=== PATIENT | female | born 1995 | race Two or more races ===

== ENCOUNTER 2017-03-17 16:56 | Inpatient (IN) | payer OTHER ==
[~2017-03-17] VITALS: Ht 160 cm; Wt 62.6 kg
== END 2017-03-19 18:14 | DRG 775 ==
LOC: LDR 16:56 → OB/GYN 16:56
PROC: 10E0XZZ Delivery of Products of Conception, External Approach (ICD-10-PCS; principal; 2017-03-17)
PROC: 0W8NXZZ Division of Female Perineum, External Approach (ICD-10-PCS; 2017-03-17)
PROC: 4A1HXCZ Monitoring of Products of Conception, Cardiac Rate, External Approach (ICD-10-PCS; 2017-03-17)
DX: O80 Encounter for full-term uncomplicated delivery (principal); Z37.0 Single live birth; Z3A.39 39 weeks gestation of pregnancy

== ENCOUNTER → 2018-11-26 06:00 | Outpatient (CLI) | payer OTHER | END | disposition home or self-care (01) | LOC: LAB 06:00 → ADM 09:15 → EDSTATUS 11-30 09:15 → CIR.AMB 11-30 09:15 | DX: Z64.1 Problems related to multiparity (principal); Z30.49 Encounter for surveillance of other contraceptives ==